=== PATIENT | female | born 1975 | race African-American/Black ===

== ENCOUNTER 2021-02-25 10:27 | Outpatient (CLI) | payer OTHER, SELFPAY ==
--- NOTE | ~2021-02-25 | MM_ITS ---
EXAMINATION: MM screening smita BI w jose HISTORY: Screening mammogram TECHNIQUE: Craniocaudal and mediolateral oblique 3-D tomosynthesis images were obtained and synthetic 2-D images were generated. CAD analysis was submitted and interpreted. COMPARISON: No prior mammogram is available for comparison at this institution. BREAST PARENCHYMAL COMPOSITION: The breasts are extremely dense, which lowers the sensitivity of mamm ography. FINDINGS: There are 3 breast biopsy markers on the right, including 2 in the area of asymmetric soft lobular circumscribed tissue density (densities) in the right inferior subareolar area. History of 3 prior benign right breast biopsies. A similar circumscribed approximately 2.1 cm opacity is noted in the upper outer quadrant of the right breast. There is no evidence of suspicious mass, calcification, or architectural distortion to suggest malignancy in either breast. IMPRESSION: 1. No mammographic evidence of malignancy. 2. Recommend routine screening mammography in one year. BI-RADS Category 2: Benign finding(s). Reviewed, dictated and finalized at location A.
== END 2021-02-25 10:28 | disposition home or self-care (01) ==
PROVIDERS: PCP Family Medicine; Visit Provider Obstetrics & Gynecology
DX: Z12.31 Encounter for screening mammogram for malignant neoplasm of breast (principal)
CPT/HCPCS: 77063; 77067

== ENCOUNTER 2021-05-01 12:59 | Outpatient (CLI) | payer OTHER, SELFPAY ==
--- NOTE | ~2021-05-01 | XR_ITS ---
EXAMINATION: XR lumbar spine min 4V DATE: 05/01/2021 13:37 INDICATION: Chronic low back pain TECHNIQUE: Anteroposterior, lateral, and bilateral oblique views of the lumbar spine, and cone-down l ateral view of the lumbosacral junction were obtained. COMPARISON: 08/07/2016 FINDINGS: There is no fracture, dislocation, or subluxation. The vertebral body heights are normal. T here is mild loss of intervertebral disc space height at L2-3 and L3-4. Small degenerative osteophyte s project from the anterior endplates of multiple vertebral bodies. There is mild lower facet osteoar thritis. IMPRESSION: 1. Mild lumbar spondylosis without acute findings. Reviewed, dictated and finalized at location A.
== END 2021-05-01 13:00 | disposition home or self-care (01) ==
PROVIDERS: PCP Family Medicine; Visit Provider Nurse Practitioner
DX: M47.896 Other spondylosis, lumbar region (principal)
CPT/HCPCS: 72110

== ENCOUNTER 2021-11-14 18:59 | Emergency (ER) | payer OTHER, SELFPAY ==
--- NOTE | ~2021-11-14 | CT_ITS ---
EXAMINATION: CT brain wo con DATE: 11/14/2021 20:10 INDICATION: Fall, hit head. TECHNIQUE: Computed tomography (CT) of the head was performed without intravenous contrast. The mA wa s adjusted according to patient size. Iterative reconstruction technique was employed. The dose-lengt h product was 681.00 mGy-cm. COMPARISON: None FINDINGS: No acute intracranial hemorrhage or extra-axial fluid collection. No hydrocephalus, mass, or herniation. No acute ischemic infarct. Unremarkable dural venous sinus attenuation. No acute osseous abnormality. Small retention cysts or polyps present in the bilateral maxillary sinuses, otherwise the aerated spa alexandra are clear. Chronic findings: Cavum septum pellucidum et vergae. IMPRESSION: No acute intracranial process. Reviewed, dictated and finalized at location K.
--- NOTE | ~2021-11-14 | XR_ITS ---
EXAM: XR hip LT min 2V HISTORY: FALL,HURTS TO BEND KNEE AND STAND COMPARISON: 08/07/2016 FINDINGS: Normal mineralization. No fracture or dislocation. No lytic or blastic lesion. Mild left h ip osteoarthritis. No erosion or periosteal change. Soft tissues within normal limits. IMPRESSION: No acute osseous finding in the left hip. Reviewed, dictated and finalized at location K.
--- NOTE | ~2021-11-14 | CT_ITS ---
EXAMINATION: CT cervical spine wo con DATE: 11/14/2021 20:10 INDICATION: TECHNIQUE: Computed tomography (CT) of the cervical spine was performed without intravenous contrast. Automated exposure control and iterative reconstruction technique were employed. The dose-length pro duct was 312.38 mGy-cm. COMPARISON: None FINDINGS: Counting reference: Craniocervical junction. There are seven cervical type vertebral bodies.. Anatomic Variants: None.. Vertebral Body Alignment: Intact. Craniocervical junction: Mild degenerative change. Alignment intact. Osseous structures/fracture: No evidence of a lytic or blastic process in the visualized spine. N o evidence of acute fracture. Trace bilateral mastoid effusions, specifically there is no evidence of temporal bone fracture. Cervical soft tissues: The paraspinal soft tissues planes are maintained. Degenerative changes: 8 mm C3-4 central disc protrusion causing severe central canal narrowing. Moder ate facet arthropathy on the right at C7-T1 where there is also severe right neural foraminal narrowi ng. IMPRESSION: No acute fracture or traumatic malalignment in the cervical spine. 8 mm central disc protrusion at C3 -4 causing critical central canal stenosis. Severe right C7-T1 neural foraminal narrowing secondary t o facet arthropathy. Reviewed, dictated and finalized at location K. IMPRESSION: No acute fracture or traumatic malalignment in the cervical spine. 8 mm central disc protrusion at C3-4 causing critical central canal stenosis. Severe right C7-T1 neural foraminal narrowing secondary to facet arthropathy.
--- NOTE | ~2021-11-14 | XR_ITS ---
EXAM: XR ankle LT min 3V HISTORY: FALL TODAY PAIN ALL OVER LT ANKLE COMPARISON: None available FINDINGS: Normal mineralization. No fracture or dislocation. No lytic or blastic lesion. Joint space s maintained. No erosion or periosteal change. Soft tissues within normal limits. IMPRESSION: No acute osseous finding in the left ankle. Reviewed, dictated and finalized at location K.
--- NOTE | ~2021-11-14 | XR_ITS ---
EXAM: XR knee LT 3V HISTORY: Fall, Pain to patella COMPARISON: None available FINDINGS: Normal mineralization. No fracture or dislocation. No lytic or blastic lesion. Joint space s maintained. No erosion or periosteal change. Bipartite patella. Soft tissues within normal limits. Small volume left knee joint effusion. IMPRESSION: No acute osseous finding in the left knee. Reviewed, dictated and finalized at location K.
--- NOTE | ~2021-11-14 | XR_ITS ---
EXAMINATION: XR chest 1V Exam Date/Time: 11/14/2021 19:55 CDT CLINICAL HISTORY: Fall Comparison: None available. RESULT: Lines, tubes, and devices: None. Lungs and pleura: Clear. Cardiomediastinal silhouette: Stable cardiomediastinal silhouette. Other: No acute osseous or upper abdominal finding. IMPRESSION: No acute cardiopulmonary process Reviewed, dictated and finalized at location K.
[2021-11-14 19:14] VITALS: RESP 20
--- NOTE | 2021-11-14 19:42 | ED.FALL ---
HPI - Fall General Chief Complaint: Fall Stated Complaint: FALL Time Seen by Provider: 11/14/21 19:34 Source: patient Mode of arrival: EMS Limitations: no limitations History of Present Illness HPI Narrative: 46-year-old female presents emergency room by ambulance. She was at [facility] when she was walking carrying her grandson. She states she tripped over a pipe and fell going face forward. She landed mainly on her left side. She did hit her head but had no loss of consciousness. She mainly complaining of some pain to the left lower extremity most predominantly to the left knee and left ankle. She cannot get up or bear weight on it afterwards. She is brought in by EMS with a cervical collar in place. She denies any prior injuries or problems with her lower extremity. Related Data Allergies Allergy/AdvReac Type Severity Reaction Status Date / Time Penicillins Allergy Severe Rash Verified 11/14/21 19:25 amoxicillin Allergy Mild RASH Verified 11/14/21 19:25 Review of Systems Review of Systems: CONSTITUTIONAL: Denies fever, chills, or sweats. EYES: Denies visual changes, redness, or discharge. ENT: Denies rhinorrhea, congestion, sore throat, or otalgia. CARDIOVASCULAR: Denies chest pain, palpitations, or edema. RESPIRATORY: Denies cough or dyspnea. GASTROINTESTINAL: Denies abdominal pain, nausea, vomiting, or diarrhea. GENITOURINARY: Denies dysuria or hematuria. SKIN: Denies rash or itching. MUSCULOSKELETAL: Having pain to the left knee left ankle as well as some to the left hip area. Also complaining of some pain to her neck. NEUROLOGIC: Denies headache, numbness, or weakness. PSYCHIATRIC: Denies anxiety or depression. [facility] Past Medical History Medical History Anemia Anxiety Seasonal allergies Surgical History Surgical History History of 1991, 1992, 1998 History of lumbar discectomy 2016 History of umbilical hernia repair 2014 Family History Family History Mother Diabetes mellitus Hypertension Heart disease Father Heart disease Social History Social History Smoking status: Never smoker Alcohol intake: current Drinks per week: 1 Alcohol use details: wine Substance use: never Gender identity (if verbalized by the patient): Female Sexual Orientation (if Verbalized by the Patient): Straight or Heterosexual Spiritual care concerns: No Agree to blood products: Yes Exam Narrative: APPEARANCE: Well appearing, no pain or distress, well-nourished. Head normocephalic and atraumatic. EYES: PERRLA/EOMI, conjunctivae very clear. NOSE: Normal with no drainage EARS:TMS clear Elian Nguyen, with good light reflex. THROAT: Pharynx clear, no exudate. NECK: Patient has some mild pain to palpation in the midline in the mid cervical region subsequently cervical collar was left in place RESPIRATORY: Airway patent, respirations nonlabored. Clear to auscultation bilaterally, no rales, rhonchi, wheezing. CARDIOVASCULAR: Regular rate and rhythm without murmurs, rubs, or gallops. ABDOMINAL: Soft, nontender, nondistended, no hepatosplenomegaly Musculoskeletal: Significant pain to palpation to the left knee specifically at the patella. Also noted to have some tenderness to the left lateral ankle but no obvious deformity. Some mild tenderness to palpation the left hip but no malalignment noted. NEURO: Alert. Cranial nerves II through XII intact. Normal gait. Good coordination. Nonfocal examination. SKIN:: Warm, dry. Normal Color PSYCHIATRIC: Normal affect/mood, normal interaction Course Vital Signs Vital signs: Vital Signs Respiratory Rate 11/14/21 19:14 Respiratory Rate 11/14/21 19:14 MDM - Fall MDM Narrative Medical decision making narrative: CT of the ce
[2021-11-14] MEDS: ONDANSETRON HCL ODT 4 MG TABLET PO (20:10)
[2021-11-14] MEDS: KETOROLAC (*BKC) 60 MG/2 ML VIAL IM (20:10)
--- NOTE | 2021-11-14 20:45 | PC.NURSE ---
provider removed C-collar
[2021-11-14 21:07] VITALS: BP 125/68; PULSE 80; RESP 16; O2SAT 99
[2021-11-14] MEDS: traMADol HCL (*CRX) 50 MG TABLET PO (21:15)
== END 2021-11-14 21:20 | disposition home or self-care (01) ==
PROVIDERS: Emergency Provider Emergency Medicine; PCP Family Medicine
DX: S86.912A Strain of unspecified muscle(s) and tendon(s) at lower leg level, left leg, initial encounter (principal); S06.0X0A Concussion without loss of consciousness, initial encounter; T14.8XXA Other injury of unspecified body region, initial encounter; Z86.2 Personal history of diseases of the blood and blood-forming organs and certain disorders involving the immune mechanism; W01.0XXA Fall on same level from slipping, tripping and stumbling without subsequent striking against object, initial encounter
CPT/HCPCS: 70450; 71045; 72125; 73502; 73562; 73610; 96372; 99284; A9270; J1885

== ENCOUNTER 2023-05-09 02:17 | Day surgery (SDC) | payer OTHER, SELFPAY ==
[2023-05-01 09:21] VITALS: BMI 31.6
--- NOTE | 2023-05-01 09:22 | PC.NURSE ---
Report to the Outpatient Waiting Room, entrance under the green pavilion located off [facility], at time _0930_ on date _[id number]_. Planned Procedure Time: _1030_. Time changes happen often and if your time is changed the preop area will call you the afternoon before. - You and your visitor will be asked to self-screen and do not enter if you have any COVID symptoms. - A mask is optional within the hospital at this time. Light breakfast. Take the following medications with a SIP of water the morning of surgery: ____Xanax if needed. DO NOT STOP ANY OF YOUR OTHER PRESCRIPTION MEDICATIONS PRIOR TO SURGERY ?EXCEPT THE FOLLOWING Medications to discontinue per physician Date to take last dose Please no make-up, nail czech, hairspray, perfume, deodorant, or body powder the day of surgery. No jewelry (including any body piercings) or valuables the day of surgery, leave them at home. Please take a shower or bath the night before, or the morning of, surgery with an antibacterial soap. Wear comfortable, loose fitting clothing. - Jewelry must be removed prior to entering the operating room. Rings and piercings that are not removed may be cut off. - The hospital will not accept responsibility for valuables. - Please leave all valuables, including medications, at home the day of surgery. Ok to drive before and after surgery. Follow any additional instructions given to you from your surgeon. If you or anyone in your household have experienced Covid symptoms in the past week, please notify your surgeon or the nurse liaison at the phone number below for possible testing. Telephone instructions given to _Patient__and asked if any additional questions and then verbalized understanding. Patient advised to call surgeon office or pre surgery nurse liaison [phone] if any additional questions.
[2023-05-09] VITALS (8 sets, daily range): BP systolic 112–129; BP diastolic 69–86; PULSE 74–92; RESP 14–16; TEMP 37.2; O2SAT 98–100; BMI 34.1
--- NOTE | 2023-05-09 08:05 | WPDHPUPDATE1 ---
History and Physical Update Update Date/Time: 05/09/23 08:05 History and Physical has been reviewed, including an updated exam of the patient. There are NO changes in the patient's condition. Risks, benefits, and alternatives have been discussed and questions answered. Patient agrees to proceed with procedure.
--- NOTE | 2023-05-09 10:30 | SUR.PREOP ---
1030- Patient notified procedure start time will be delayed. Patient verbalized understanding and denying needs at this time.
[2023-05-09] MEDS: LIDO 1%/EPINEPHRINE 1:100,000 50 ML VIAL INFILTRATE (11:56)
--- NOTE | 2023-05-09 12:23 | SUR.OPER ---
NO SPECIMEN VERIFIED SPECIMEN ENTERED IN ERROR AND STOPPED.
--- NOTE | 2023-05-09 12:41 | W.PM.PROC2 ---
Procedure Note - Detailed Date of Procedure 05/09/23 Pre-op Diagnosis Recurrent Cyst of Left Lower Lip Post-op Diagnosis Same Procedure Performed 1 cm excision of sebaceous cyst left lower lip Surgeon Vance Bourgeois MD Anesthesia Local Indications Recurrent sebaceous cyst of the left lower lip Findings Subcutaneous sebaceous cyst of the left lower lip Description of Procedure Site of this mass on the right lower lip was marked on the patient with her consent in the holding area. We discussed again possibility of excising through a cutaneous access and she preferred not. She is having this removed because wedding is upcoming. She is aware of the diagnosis from the prior surgery and the possibility of recurrence by not locating and excising a punctum. She was taken to the operating room where she was placed supine on the operating table. A time-out was held and confirmed. The face was prepped and draped usual fashion. The area was anesthetized with 1% lidocaine with epinephrine beginning with a mental nerve block followed by local infiltration for hemostasis. From time was allowed for hemostatic effect. The incision was through the mucosa on inside of the lip. Largely blunt dissection followed that after elevating the mucosa a couple of mm from the orbicularis. Dissection past the orbicularis was done almost entirely with longitudinal spreading of the muscle fibers and separation of the muscle tissue to identify the deeper structure which was indeed subcutaneous . The cyst was released from the under surface of the cutaneous lip was scissors. This resulted in a rupture of the cyst and piecemeal evacuation of everything that seemed to be part of the cyst. Almost all of that was picked out with pickups as pressure was applied to the cyst externally everting it into the wound. As much of the lining as would come easily was also removed. Closure required a single Vicryl suture in some superficial damaged muscle fibers. The remainder of the closure was done with 5 0 chromic carefully placed in the mucosa. No bandage was applied the patient tolerated the procedure well estimated blood loss 2 milliliter the patient was discharged with instructions in wound care and follow-up she has a prescription for tramadol 50 mg 1-2 Q 6 hours as needed for pain 10. . Estimated Blood Loss 2 Pathology None sent Complications No immediate complications Condition Stable Disposition Same day
== END 2023-05-09 12:50 | disposition home or self-care (01) ==
PROVIDERS: PCP Family Medicine; Visit Provider Plastic Surgery
PROC: (CPT 11441; principal; 2023-05-09 10:30)
DX: L72.3 Sebaceous cyst (principal)
CPT/HCPCS: 11441; 12051; A9270